=== PATIENT | female | born 1940 | race Caucasian/White ===

== ENCOUNTER 2024-02-13 17:05 | Emergency (ER) | payer MEDICARE, SELFPAY ==
[2024-02-13 17:08] VITALS: BP 104/76; PULSE 82; RESP 16; TEMP 36.3; O2SAT 100
--- NOTE | 2024-02-13 17:32 | ED.VIS.LOWEX ---
HPI History of Present Illness Chief Complaint: Lower Extremity Injury Detail of Chief Complaint: Left leg injury Informant: patient, spouse/S.O. and family Narrative Narrative: Patient presents with injury to left leg. Patient states that she was standing and her left leg/knee twisted to the outside and she fell onto the couch. Unable to bear weight since. She has had some chronic pain issues with the left leg and earlier in the year had a see wound management for a large blister on her left lower leg. 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 She lives in [place] 7 months out of the year and is [facility] 5 months out of the year but is here visiting family. Patient was having a hard time ambulating today so brought in for evaluation by EMS. [facility] Home Medications ?Medication ?Instructions ?Recorded ?Last Taken ?Type allopurinol 300 mg tablet 300 mg PO DAILY 02/13/24 Unknown History apixaban 2.5 mg tablet (Eliquis) 2.5 mg PO BID 02/13/24 Unknown History lovastatin 20 mg tablet 20 mg PO QHS 02/13/24 Unknown History metoprolol tartrate 25 mg tablet 25 mg PO BID 02/13/24 Unknown History Allergy/AdvReac Type Severity Reaction Status Date / Time Penicillins Allergy PT UNSURE Verified 02/13/24 17:15 OF REACTION Social History Smoking Status: Never smoker ROS ROS ED Review of Systems ROS Unobtainable: other Constitutional Constitutional ED: Reports lethargy; Denies chills, fever(s), sweats or weight loss Eyes Eyes: Denies blurry vision, change in vision or diplopia ENT ENT ED: Denies rhinorrhea or sore throat Cardiovascular Cardiovascular: Denies chest pain, orthopnea or racing heartbeat Respiratory/Chest Respiratory/Chest: Denies cough, dyspnea, dyspnea on exertion, orthopnea or sputum Gastrointestinal Gastrointestinal: Denies abdominal pain, diarrhea, nausea or vomiting Genitourinary Genitourinary ED: Denies dysuria, hematuria or urinary frequency Musculoskeletal Musculoskeletal: Reports other Details: Left leg pain, difficulty ambulating ; Denies arthralgias, back pain, myalgias or neck pain Integumentary Denies abscess, Abrasions or rash Neurologic Neurologic: Denies headache(s) or weakness Psychiatric Psychiatric: Denies anxiety, depression or suicidal thoughts Endocrine Endocrinology: Denies polydipsia, polyphagia or polyuria Hematologic/Lymphatic Hematologic/Lymphatic: Denies easy bleeding, easy bruising or lymphadenopathy Allergic/Immunologic Allergic/Immunologic ED: Denies mouth swelling, tongue swelling or urticaria EXAM Physical Exam Const Vital Signs: 02/13/24 17:08 Temperature 97.4 F L Temperature Source Temporal Pulse Rate 82 Respiratory Rate 16 Blood Pressure 104/76 Blood Pressure Mean 85 Pulse Ox 100 Oxygen Delivery Method Room Air Positive well nourished and well developed General Appearance ED: well developed and NAD HEENT Reports TM's clear and moist mucous membranes normocephalic and atraumatic; Negative for trauma or tenderness Tympanic Membrane ED: Yes TM's clear Eyes PERRL and EOMs intact bilaterally General Eye ED: Negative for pale conjunctiva or scleral icterus Neck no lymphadenopathy, supple and no JVD General: Negative for tenderness Chest Wall inspection of chest normal and palpation of chest normal Chest: Negative for tenderness Resp normal respiratory effort and clear to auscultation bilaterally Effort and Inspection: Negative for respiratory distress or pain with movement Auscultation: Negative for rhonchi, wheezes or diminished lung sounds Cardio regular rate, regular rhythm, S1 normal heart sound, S2 normal heart sound and no murmurs Peripheral Pulses: pulses 2+ throughout GI normal to inspection, nondistended, normoactive bowel sounds, soft to palpation, non-tender, non-distended and no masses Back/Spine no CVA tenderness and no thoracic nor lumbar tenderness Extremity Extremity Narrative: Left knee-patient does have a suprapatellar joint effusion. Diffuse tenderness about the medial and lateral joint line. She is able to flex and extend without difficulty. Ligamentously stable. Neurovascular intact distally. She also has some mild tenderness diffusely about the ankle. No cellulitic or infectious changes noted. No pain at the hip General Extremety ED: Negative for edema General Extremity: Negative for edema Neuro oriented x3, CN's II-XII intact bilaterally, no sensory deficits noted and gait normal Sensorium / Orientation: awake, alert, oriented to person, oriented to place and oriented to time Motor Exam: strength 5/5 throughout and strength abnormal Psych mental status grossly normal Skin no rashes or lesions noted and no wounds MDM MDM MDM Narrative Medical decision making narrative: Patient presents with injury to the left knee. X-rays of the knee and ankle obtained interpreted by myself no evidence of fracture or dislocation and radiology was in agreement. She does have an effusion on the left knee which she has had for many weeks. At this point she will be given an knee immobilizer and a walker and we will road test her to see if she can tolerate using a walker. If she cannot she may require admission. Radiography Diagnostic Testing: Clinical Impression(s) from Imaging Studies Ankle X-Ray 02/13/24 17:38 IMPRESSION: No acute fracture or dislocation. Electronically Signed: Lui Rosales MD at 17:56 EDT , Knee X-Ray 02/13/24 17:38 IMPRESSION: Degenerative changes. Effusion. No fracture or dislocation. Electronically Signed: Lui Rosales MD at 17:54 EDT , 4 view x-rays of the left knee obtained interpreted by myself no evidence of fracture dislocation. She had narrowing of the medial compartment likely consistent with degenerative changes. Radiology in agreement. Three-view x-rays of the ankle obtained interpreted by myself as no evidence of fracture or dislocation. Radiology in agreement. Discharge Plan Triage Chief Complaint: Lower Extremity Injury ED Provider: Renetta Stark Dx/Rx/DC Orders Clinical Impression: Left knee sprain Instructions: ED Knee Sprain Prescriptions: No Action allopurinol 300 mg tablet 300 mg PO DAILY lovastatin 20 mg tablet 20 mg PO QHS metoprolol tartrate 25 mg tablet 25 mg PO BID Eliquis 2.5 mg tablet 2.5 mg PO BID Primary Care Provider: Care Physician,No Primary Referrals: Danny Frost DO [Med Staff - Active Staff] - 3-5 Days Care Physician,No Primary [Primary Care Provider] - Print Language: Indian Disposition Disposition: Home, Self Care
--- NOTE | 2024-02-13 17:38 | RAD_ITS ---
STUDY: X-RAY - LEFT ANKLE REASON FOR EXAM: Female, 84 years old. injury TECHNIQUE: 3 view(s) of the ankle. COMPARISON: None. FINDINGS: Normal visualized distal tibia and fibula. Normal medial and lateral malleoli. Normal tibiotalar articulation and ankle mortise. Normal visualized talus and calcaneus. The visualized subtalar, talonavicular, calcaneocuboid and tarsal articulations are normal. There is no demonstrated fracture. There is diffuse soft tissue swelling. RAD/Ankle min 3 Views IMPRESSION: No acute fracture or dislocation. Electronically Signed: Lui Rosales MD at 17:56 EDT ,
--- NOTE | 2024-02-13 17:38 | RAD_ITS ---
STUDY: X-RAY - LEFT KNEE REASON FOR EXAM: Female, 84 years old. injury TECHNIQUE: 4 view(s) of the knee. COMPARISON: None. 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 Normal visualized proximal tibia and fibula. Normal proximal tibiofibular articulation. There is no demonstrated fracture. There is moderate degenerative arthrosis of the medial femorotibial compartment with moderate joint space narrowing. Normal lateral femorotibial compartment. There is moderate degenerative arthrosis of the patellofemoral articulation. There is a moderate volume joint effusion. There are atherosclerotic calcifications. RAD/Knee 4 or More Views IMPRESSION: Degenerative changes. Effusion. No fracture or dislocation. Electronically Signed: Lui Rosales MD at 17:54 EDT ,
[2024-02-13 19:50] VITALS: RESP 16
== END 2024-02-13 19:51 | disposition home or self-care (01) ==
PROVIDERS: Emergency Provider Emergency Medicine; Visit Provider Emergency Medicine
DX: S83.92XA Sprain of unspecified site of left knee, initial encounter (principal); M25.462 Effusion, left knee; G89.29 Other chronic pain; Z79.899 Other long term (current) drug therapy; Z79.01 Long term (current) use of anticoagulants; W19.XXXA Unspecified fall, initial encounter
CPT/HCPCS: 73564; 73610; 99282